=== PATIENT | female | born 1980 | race Caucasian/White ===

== ENCOUNTER → 2020-08-09 | Outpatient (CLI) | payer BC ==
[~2020-08-09] MED LIST: ANAPROX DS550 MG PO; COMBIVENT1 ARO IH; IBU800 M1 PO; PRENATAL1 TA1 PO; TRAMADOL HCL50 MG PO
== END | disposition home or self-care (01) ==
LOC: COVID19 05:35
PROVIDERS: ATTEND Physician Assistant Medical
DX: Z20.828 Contact with and (suspected) exposure to other viral communicable diseases (principal); J06.9 Acute upper respiratory infection, unspecified; Z87.891 Personal history of nicotine dependence

== ENCOUNTER → 2021-03-10 | Outpatient (CLI) | payer BC | END | disposition home or self-care (01) | LOC: ORTHO 02:54 | PROVIDERS: ATTEND Orthopaedic Surgery | DX: M25.562 Pain in left knee (principal) ==